=== PATIENT | male | born 1960 | race Caucasian/White ===

== ENCOUNTER 2018-11-16 13:16 | Emergency (ER) | payer OTHER ==
[~2018-11-16] VITALS: Ht 170.2 cm; Wt 59.0 kg
[~2018-11-16 13:16] MED LIST: BACTRIM DS TAB1 EACH PO; CLINDAMYCIN HC150 MG PO; CLINDAMYCIN HC300 MG PO; IBUPROFEN600 MG PO; MUPIROCIN22 GM TOP; NORCO 5-325 TA1 EACH PO; PEPCID20 MG PO; PRILOSEC10 M1 PO; PRILOSEC20 MG PO; SEPTRA DS TABL1 EACH PO
[2018-11-16] MEDS ORDERED: HYDROXYZINE PAM25 MG PO (13:34)
== END 2018-11-16 13:40 | disposition home or self-care (01) ==
LOC: ED 13:16
DX: F41.8 Other specified anxiety disorders (principal); F17.200 Nicotine dependence, unspecified, uncomplicated; Z88.1 Allergy status to other antibiotic agents
CPT/HCPCS: 99283; Q0177

== ENCOUNTER 2020-10-27 20:14 | Emergency (ER) | payer OTHER ==
[~2020-10-27] VITALS: Ht 170.2 cm; Wt 56.7 kg
[~2020-10-27 20:14] MED LIST changes: +HYDROXYZINE PAM25 MG PO
[2020-10-27] MEDS ORDERED: DOXYCYCLINE HY100 MG PO (22:06)
== END 2020-10-27 22:12 | disposition home or self-care (01) ==
LOC: ED 20:14
DX: S91.115A Laceration without foreign body of left lesser toe(s) without damage to nail, initial encounter (principal); S61.209A Unspecified open wound of unspecified finger without damage to nail, initial encounter; L08.9 Local infection of the skin and subcutaneous tissue, unspecified; X58.XXXA Exposure to other specified factors, initial encounter; K21.9 Gastro-esophageal reflux disease without esophagitis; F17.200 Nicotine dependence, unspecified, uncomplicated; Z88.1 Allergy status to other antibiotic agents
CPT/HCPCS: 90471; 90714; 99282-25